=== PATIENT | male | born 1980 | race Two or more races ===

== ENCOUNTER 2022-11-22 18:13 | Emergency (ER) | payer OTHER ==
[2022-11-22 18:17] VITALS: BP 155/94; PULSE 74; RESP 18; TEMP 97.5; BMI 27.1
[2022-11-22] MEDS ORDERED: IBUPROFEN 600 MG TABLET (FP) PO ONE (20:04)
[2022-11-22] MEDS ORDERED: ACETAMINOPHEN 325 MG TABLET (FP) ONE (20:07)
== END 2022-11-22 21:42 | disposition home or self-care (01) ==
LOC: JERFT 18:13 → JER 18:13 → JERFT 21:42
DX: S89.91XA Unspecified injury of right lower leg, initial encounter (principal); W10.8XXA Fall (on) (from) other stairs and steps, initial encounter
CPT/HCPCS: 73562-TC-RT-FY; 73590-TC-RT-FY; 99284-25